=== PATIENT | female | born 1960 | race Caucasian/White ===

== ENCOUNTER 2018-02-15 05:39 | Day surgery (SDC) | payer OTHER ==
[~2018-02-15] VITALS: Ht 162.6 cm; Wt 98.2 kg
--- NOTE | ~2018-02-15 | OP ---
PATIENT NAME: MARCIA GARCES MEDICAL RECORD: [id number] :60 LOCATION:[facility] ADMISSION DATE: SURGEON: ELIANA BARON DO DATE OF OPERATION: 02/15/2018 PROCEDURE: EGD with biopsies. INDICATIONS FOR PROCEDURE: Dysphagia, epigastric pain, nausea, heartburn. SCOPE: Olympus video gastroscope. MEDICATIONS: Propofol 300 mg IV per anesthesia. ESTIMATED BLOOD LOSS: Minimal. COMPLICATIONS: None. FINDINGS: Informed consent was given. The patient was made comfortable with the above medication. After reaching an adequate level of sedation by slow IV push, the patient was placed on her left side. The endoscope was advanced under direct visualization through the mouth to the second portion of the duodenum with ease. The upper, middle, and lower thirds of the esophagus appeared normal. Cold forceps, biopsies were taken in the mid esophagus to rule out the presence of eosinophils. At the GE junction, there were some mild changes consistent with LA class A reflux-induced esophagitis. Just beyond the GE junction, it was evidence that the patient has had a prior intervention, which is consistent with her history of a laparoscopic band placement. There was a very small gastric pouch with some retained food present. The endoscope was advanced beyond this site into the main portion of the stomach. On the retroflex view, the laparoscopic band could again be appreciated. Throughout the body, antrum, and prepyloric regions of the stomach, there was a fair amount of granularity and erythema consistent with gastritis. Random cold forceps biopsies were taken to submit for histology and to rule out the presence of H. pylori. The endoscope was advanced beyond pylorus into the duodenum. There were a few areas of granularity and villous flattening throughout the bulb and second portion of the duodenum. Random cold forceps biopsies were taken. The endoscope was withdrawn from the patient. The patient tolerated the procedure well and there were no complications. IMPRESSION: 1. LA class A reflux-induced esophagitis. 2. Prior intervention consistent with a laparoscopic band placement with retained food in the gastric pouch. 3. Gastritis. 4. Duodenitis. PLAN AND RECOMMENDATIONS: 1. Discharge home when recovery parameters are met. 2. Follow up biopsy specimen results. 3. GERD diet and reflux precautions. 4. Continue current medications including Carafate, Protonix, and ranitidine. This is maximum medical therapy and will be continued while awaiting biopsy results. 5. If biopsies are all normal, recommend follow up with the surgeon regarding laparoscopic band and the possibility that this is causing many of her symptoms. OPERATIVE REPORT [id number] MARCIA GARCES 6. Further considerations and workup as we move forward may include a barium esophagram. TRANSINT:[id number] Voice Confirmation ID: [id number] DOCUMENT ID: [id number] ELIANA BARON DO at 1012 CC: [id number] DICTATION DATE: 02/15/18 0758 SPEECH LANGUAGE THERAPIST: 02/15/18 0902 [facility] 02/15/18 [facility] [address] [place] [address]
[~2018-02-15 05:39] MED LIST: COLACE100 MG PO; EFFEXOR75 MG; EFFEXOR75 MG PO; EXFORGE 5-160 M1 TAB PO; EZFE 200200 MG; FERROUS SULFAT325 MG PO; IBUPROFEN600 MG PO; NEXIUM40 MG PO; PERCOCET 5-3251 TAB PO; PROTONIX40 MG PO; SYNTHROID200 MC1 PO; VITAMIN B-12500 MCG PO
[2018-02-15 05:54] LABS: HEMATOCRIT 42.6 % (36.0-48.0); HEMOGLOBIN 14.8 g/dL (12-16); MCH 32.3 pg (26.0-34.0); MCHC 34.7 g/dL (31.0-37.0); MEAN PLATELET VOLUME 11.6 fL (7.4-10.4); RBC 4.58 10x6/uL (4.00-5.40); RDW 13.7 % (11.5-14.5); WBC 11.4 10x3/uL (4.8-10.8)
[2018-02-15] MEDS ORDERED: PROTONIX40 MG PO (06:17)
[2018-02-15] MEDS ORDERED: NEURONTIN 300300 MG PO (06:18)
[2018-02-15 06:25] VITALS: Ht 162.6 cm; Wt 98.2 kg
== END 2018-02-15 08:59 | disposition home or self-care (01) ==
LOC: D.OPS 05:39
PROVIDERS: Anesthesiology
DX: K21.0 Gastro-esophageal reflux disease with esophagitis (principal); K29.70 Gastritis, unspecified, without bleeding; K29.80 Duodenitis without bleeding